=== PATIENT | female | born 1970 | race Caucasian/White ===

== ENCOUNTER 2017-11-11 20:37 | Emergency (ER) | payer MEDICAID ==
[~2017-11-11] VITALS: Ht 165.1 cm; Wt 52.0 kg
[2017-11-12 09:40] VITALS: BP 114/73
== END 2017-11-12 09:42 | disposition home or self-care (01) ==
LOC: ER 20:37
DX: K12.1 Other forms of stomatitis (principal); Z98.890 Other specified postprocedural states; Z85.9 Personal history of malignant neoplasm, unspecified
CPT/HCPCS: 99283